=== PATIENT | male | born 1985 | race African-American/Black ===

== ENCOUNTER 2018-11-03 08:43 | Observation (INO) | payer OTHER ==
[~2018-11-03] VITALS: Ht 165.1 cm; Wt 77.6 kg
[2018-11-03] MEDS ORDERED: MULT1CHW28 PO (08:53)
[2018-11-03] MEDS ORDERED: ONDANSETRON 4MG/2ML VIAL (J2405) As Ordered ONE (09:14)
[2018-11-03] MEDS ORDERED: ONDANSETRON 4MG/2ML VIAL (J2405) IV ONE (09:15)
[2018-11-03 09:25] LABS: HEMOGLOBIN 14.8 g/dl (13.5-17.5); MEAN CORPUSCULAR HEMOGLOBIN 29.7 pg (27.0-33.0); MEAN CORPUSCULAR HGB CONC 32.9 g/dl (32.0-36.5); MEAN CORPUSCULAR VOLUME 90.2 fl (80.0-96.0); PLATELET COUNT, AUTOMATED 249 10^3/uL (150-450); RED BLOOD COUNT 4.99 10^6/uL (4.30-6.10); WHITE BLOOD COUNT 11.3 10^3/uL (4.0-10.0)
[2018-11-03] MEDS ORDERED: NS 1,000 ML IV ONE ×3 (09:30→11:15)
[2018-11-03 09:44] LABS: ATYPICAL LYMPH 1 % (0-5); LYMPHOCYTES 16 % (16-52); METAMYELOCYTES 1 % (0-0); NEUTROPHILS 78 % (35-75)
[2018-11-03 09:45] LABS: PLATELET ESTIMATE NORMAL (NORMAL)
[2018-11-03 09:54] LABS: ALBUMIN 3.9 GM/DL (3.2-5.2); ALT/SGPT 26 U/L (12-78); BILIRUBIN,TOTAL 0.2 MG/DL (0.2-1.0); BLOOD UREA NITROGEN 17 MG/DL (7-18); CALCIUM LEVEL 9.3 MG/DL (8.5-10.1); CARBON DIOXIDE LEVEL 17 MEQ/L (21-32); CHLORIDE LEVEL 104 MEQ/L (98-107); CREATININE FOR GFR 2.38 MG/DL (0.70-1.30); GLOMERULAR FILTRATION RATE 34.1 (>60); GLUCOSE, FASTING 161 MG/DL (70-100); POTASSIUM SERUM 4.2 MEQ/L (3.5-5.1); SODIUM LEVEL 143 MEQ/L (136-145); TOTAL PROTEIN 7.2 GM/DL (6.4-8.2)
[2018-11-03 10:56] LABS: AMPHETAMINES LEVEL URINE NEGATIVE (NEGATIVE); BARBITURATES URINE NEGATIVE (NEGATIVE); BENZODIAZEPINES URINE NEGATIVE (NEGATIVE); CANNABINOIDS URINE NEGATIVE (NEGATIVE); COCAINE METABOLITE URINE NEGATIVE (NEGATIVE); METHADONE URINE NEGATIVE (NEGATIVE); OPIATES URINE NEGATIVE (NEGATIVE); PHENCYCLIDINE URINE NEGATIVE (NEGATIVE)
[2018-11-03 11:45] LABS: VENOUS HCO3 24.7 MEQ/L (23.0-27.0); VENOUS O2 SATURATION 53.1 % (60.0-80.0); VENOUS PARTIAL PRESSURE CO2 60.4 mmHg (38.0-50.0); VENOUS PARTIAL PRESSURE O2 35.1 mmHg (30.0-50.0); VENOUS STANDARD HCO3 20.1 MEQ/L; VENOUS TOTAL CO2 26.6 MEQ/L (24.0-28.0)
[2018-11-03 11:45] LABS: CPK CREATINE PHOSPHOKINASE 320 U/L (39-308); SALICYLATE LEVEL < 1.7 MG/DL (5.0-30.0)
[2018-11-03 12:24] LABS: AMORPHOUS SEDIMENT SMALL (NEGATIVE); APPEARANCE, URINE HAZY (CLEAR); BACTERIA, URINE AUTO NEGATIVE (NEGATIVE); BILIRUBIN, URINE AUTO NEGATIVE (NEGATIVE); BLOOD, URINE BLOOD 1+ (NEGATIVE); COLOR, URINE YELLOW (YELLOW); GLUCOSE, URINE (UA) AUTO NEGATIVE (NEGATIVE); KETONE, URINE AUTO TRACE mg/dL (NEGATIVE); LEUKOCYTE ESTERASE, URINE AUTO NEGATIVE (NEGATIVE); MUCUS, URINE SMALL (NEGATIVE); NITRITE, URINE AUTO NEGATIVE (NEGATIVE); PROTEIN, URINE AUTO 2+ mg/dL (NEGATIVE); RBC, URINE AUTO 1 /HPF (0-3); SPECIFIC GRAVITY URINE AUTO 1.015 (1.002-1.035); SQUAMOUS EPITHELIAL CELL UR AU 0 /HPF (0-6); UROBILINOGEN, URINE AUTO 0.2 mg/dL (0.0-2.0); WBC, URINE AUTO 4 /HPF (0-3)
[2018-11-03] MEDS ORDERED: ESSETAB4 PO (12:43)
[2018-11-03] MEDS ORDERED: ACETAMINOPHEN TAB 650MG DOSE (2X325MG) PO PRN (13:30)
--- NOTE | 2018-11-03 13:45 | HPEPDOC ---
General Date of Admission Date of Service: Nov 03, 2018 Attending Physician: MANUELITO LOPEZ MD Chief Complaint The patient is a 33-year-old male admitted with a reason for visit of Near Syncope. History of Present Illness 33 years old -[place] male with past medical history of no medical disease. He jogs 3 to 4K every day, came in this morning when he felt lighthe aded and and was about to pass out and then later he tripped and fell right after his running. Denies any chest pain but did had 1 episode of shortness of breath, no nausea, vomiting, syncope or seizure like activity Home Medications Scheduled Multivitamin with Folic Acid (One Daily Multivitamin Tablet) 400 Mcg Tablet, 1 TAB PO DAILY, (Reported) Allergies Coded Allergies: No Known Allergies (Unverified , 11/03/18) Past Medical History Medical History None Surgical History None Social History * Smoker: Denies Alcohol: Denies Drugs: denies A-FIB/CHADSVASC A-FIB History Current/History of A-Fib/PAF?: No Review of Systems Constitutional: Denies: Chills, Fever, Malaise, Night Sweats, Weakness, Fatigue, Weight Loss, Lethargy, Other Eyes: Denies: Pain, Vision change, Conjunctivae inflammation, Eyelid inflammation, Redness, Other ENT: Denies: Head Aches, Ear Pain, Dysphagia, Sinus Congestion, Post Nasal Drip, Sore Throat, Epistaxis, Other Symptoms Skin: Denies: Rash, Lesions, Jaundice, Bruising, Itching, Dry, Breakdown, Nail Changes, Other Pulmonary: Denies: Dyspnea, Cough, Pleuritic Chest Pain, Other Symptoms Cardiovascular: Denies: Chest Pain, Palpitations, Orthopnea, Paroxysmal Noc. Dyspnea, Edema, Lt Headedness, Other Symptoms Gastrointestinal: Denies: Nausea, Vomiting, Abdominal Pain, Diarrhea, Constipation, Melena, Hematochezia, Other Symptoms Genitourinary: Denies: Dysuria, Frequency, Incontinence, Hematuria, Retention, Other Symptoms Hematologic: Denies: Bruising, Bleeding Excessively, Petecchia, Purpura, Enlarged Lymph Nodes, Other Hematologic Endocrine: Denies: Polydipsia, Polyphagia, Polyuria, Heat Intolerance, Cold Intolerance, Other Endocrine Sx Musculoskeletal: Denies: Neck Pain, Back Pain, Shoulder Pain, Arm Pain, Hand Pain, Leg Pain, Foot Pain, Joint Pain, Muscle Pain, Spasms, Other Symptoms Neurological: Denies: Weakness, Numbness, Incoordination, Change in speech, Confusion, Seizures, Other Symptoms Psych: Denies: Mood Normal, Anxiety, Depression, Memory Issues, Thoughts of Self Harm, Anger, Thoughts of Harming Other, Other Psych Physical Examination General Exam: Positive: Alert, Cooperative Eye Exam: Positive: PERRLA, Conjunctiva & lids normal ENT Exam: Positive: Atraumatic Neck Exam: Positive: Supple Chest Exam: Positive: Clear to auscultation, Normal air movement Heart Exam: Positive: Rate Normal, Normal S1, Normal S2 Abdomen Exam: Positive: Normal bowel sounds, Soft Extremity Exam: Positive: Normal pulses Skin Exam: Positive: Nl turgor and temperature Neuro Exam: Positive: Strength at 5/5 X4 ext Psych Exam: Positive: Mental status NL, Mood NL Vital Signs Vital Signs Date Time Temp Pulse Resp B/P (MAP) Pulse Ox O2 Delivery O2 Flow Rate FiO2 11/03/18 09:02 92 108/54 (72) 103 102/56 (71) 109 111/57 (75) 11/03/18 08:55 96.7 18 98 Room Air Laboratory Data Labs 24H Laboratory Tests 2 11/03/18 09:11: Immature Granulocyte % (Auto) , Nucleated Red Blood Cells % (auto) 0.0, Neutrop hils 78H, Band Neutrophils 4, Lymphocytes (Manual) 16, Metamyelocytes 1H, Atypical Lymphocytes 1, Platelet Estimate NORMAL, Urine Appearance HAZY, Urine Color YELLOW, Urine pH 6.0, Urine Specific [place] 1.015, Urine Protein 2+H, Urine Glucose (UA) NEGATIVE, Urine Ketones TRACEH, Urine Urobilinogen 0.2, Urine Bilirubin NEGATIVE, Urine Leukocyte Esterase NEGATIVE, Urine Blood 1+H, Urine Nitrite NEGATIVE, Urine WBC (Auto) 4H, Urine RBC (Auto) 1, Urine Hyaline Casts (Auto) 8, Urine Bacteria (Auto) NEGATIVE, Urine Squamous Epithelial Cells 0, Urine Amorphous Sediment SMALLH, Urine Mucus (Auto) SMALL, Urine Sperm (Auto) , Anion Gap 22H, Glomerular Filtration Rate 34.1L, Blood Urea Nitrogen 17, Cr eatinine 2.38H, Sodium Level 143, Potassium Level 4.2, Chloride Level 104, Carbon Dioxide Level 17L, Calcium Level 9.3, Aspartate Amino Transf (AST/SGOT) 21, Alanine Aminotransferase (ALT/SGPT) 26, Total Creatine Kinase 320H, Alkaline Phosphatase 84, Total Bilirubin 0.2, Total Protein 7.2, Albumin 3.9, Albumin/Globulin Ratio 1.18, Salicylates Level < 1.7L, Urine Amphetamines Screen NEGATIVE, Urine Benzodiazepines Screen NEGATIVE, Urine Opiates Screen NEGATIVE, Urine Methadone Screen NEGATIVE, Urine Barbiturates Screen NEGATIVE, Urine Phencyclidine Screen NEGATIVE, Urine Cocaine Metabolite Screen NEGATIVE, Urine Cannabinoids Screen NEGATIVE 11/03/18 11:20: Lactic Acid Level 8.2*H 11/03/18 11:22: Blood Gas Bicarbonate Standard 20.1, Venous Blood pH 7.230L, Venous Blood Partial Pressure CO2 60.4H, Venous Blood Partial Pressure O2 35.1, Venous Blood Total Carbon Dioxide 26.6, Venous Blood HCO3 24.7, Venous Blood Oxygen Saturation 53.1L, Venous Blood Base Excess -4.0L CBC/BMP Laboratory Tests 11/03/18 09:11 Red Blood Count 4.99, Mean Corpuscular Volume 90.2, Mean Corpuscular Hemoglobin 29.7, Mean Corpuscular Hemoglobin Concent 32.9, Red Cell Distribution Width 13.2, Calcium Level 9.3, Aspartate Amino Transf (AST/SGOT) 21, Alanine Aminotransferase (ALT/SGPT) 26, Total Creatine Kinase 320 H, Alkaline Phosphatase 84, Total Bilirubin 0.2, Total Protein 7.2, Albumin 3.9 Problems (1) Acute renal failure Status: Acute Problem Text: 33 years old -[place] male with no past medical history he runs about 3-4. [place] is a day when he developed dizziness and feeling of almost passing out and shortness of breath after running. On workup his creatinine as high as well. His BUN, most likely prerenal in nature Patient's lactic acid is also elevated, but that most likely secondary to his is running Again patient most likely has a dehydration and will be treated with IV hydration . I will request a renal sonogram to evaluate renal anatomy as well as echocardiogram for cardiac function . I'll request CBC, CMP and lactic acid at 6 PM and 6 AM again Will keep in close eye on intake and output Prophylaxis not needed as patient is active . We will repeat level work. If once it's and within normal range. An echo and renal sono's are negative, patient will be discharged home (2) Lactic acidosis Status: Acute Problem Text: Secondary to his strenuous exercise Will monitor lactic acid levels but is not associated with any infectious process or sepsis Plan / VTE VTE Prophylaxis Ordered?: No VTE Exclusion Mechanical Proph: Low Risk for VTE VTE Exclusion Pharmacological: At Low Risk for VTE MANUELITO LOPEZ MD Nov 03, 2018 13:45
[2018-11-03 15:22] VITALS: BP 133/64
[2018-11-03] MEDS: NS 1,000 ML IV SCH ×2 (15:36→21:42)
--- NOTE | 2018-11-03 16:49 | REP ---
Renal sonography: History: Acute renal failure. Findings: Cortical echogenicity pattern is increased bilaterally consistent with medical renal disease. There is no evidence of hydronephrosis or renal mass on either side. The right kidney measures 11.8 x 5.9 x 5.0 cm. Left renal dimensions are 10.3 x 4.9 x 6.0 cm. Other renal abnormality. Impression: Increased renal cortical echogenicity pattern consistent with medical renal disease. No hydronephrosis seen. Electronically Signed by Jeremiah Daily MD 11/03/2018 04:40 P
--- NOTE | 2018-11-03 17:56 | ECGEPIP ---
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
[2018-11-03 18:47] LABS: CALCIUM LEVEL 8.1 MG/DL (8.5-10.1); CREATININE FOR GFR 1.92 MG/DL (0.70-1.30); POTASSIUM SERUM 3.8 MEQ/L (3.5-5.1)
[2018-11-03 22:00] VITALS: BP 124/71
[2018-11-04] MEDS: NS 1,000 ML IV SCH ×2 (04:45→09:56)
[2018-11-04 06:00] VITALS: BP 122/70
--- NOTE | 2018-11-04 07:23 | ECHO ---
DATE OF PROCEDURE: 11/03/2018 HEIGHT: 65 inches. WEIGHT: 163 pounds. BODY SURFACE AREA: 1.81 sq m. Inpatient [facility] room 4228. REFERRING PHYSICIAN: Dr. Walter Baker INDICATIONS: Syncope. MEASUREMENTS: 2-D Measurements: RV - 4.0 cm LV - 4.3 cm Septum - 0.9 cm Posterior wall - 0.9 cm LVEF - 65% Doppler Measurements: AV - 1.24 meters per second LVOT - 0.90 meters per second LVOT - 1.9 cm MV - E 69, A - 78, E:A ratio 0.9 Early mitral deceleration time -169 milliseconds E prime 11, A prime 10, E/E prime ratio 6.2 PV - 0.8 meters per second Pulmonary artery acceleration time 113 milliseconds RVSP - 34 mmHg IVC - 1.9 cm COMMENTS: Normal sinus rhythm without intraventricular conduction disturbance. M-mode and two-dimensional echocardiography was performed with pulsed, continuous wave, color flow and tissue Doppler studies. Normal left ventricular size, wall thickness and wall motion. Normal left atrial size and current Doppler assessment of LV diastolic function and estimated mean left atrial pressure. Normal right heart chamber sizes and motion with Doppler evidence of borderline pulmonary hypertension. Normal IVC size and collapse against an elevated central venous pressure. Normal appearing and functioning valvular structures. No apparent intracardiac mass or pericardial effusion. Normal aortic root diameter. Unable to detect a structural or functional abnormality to account for the patient's syncopal spell.
[2018-11-04 07:59] LABS: ALBUMIN 3.2 GM/DL (3.2-5.2); ALT/SGPT 25 U/L (12-78); BILIRUBIN,TOTAL 0.4 MG/DL (0.2-1.0); BLOOD UREA NITROGEN 15 MG/DL (7-18); CALCIUM LEVEL 8.2 MG/DL (8.5-10.1); CARBON DIOXIDE LEVEL 26 MEQ/L (21-32); CHLORIDE LEVEL 115 MEQ/L (98-107); CREATININE FOR GFR 1.68 MG/DL (0.70-1.30); GLOMERULAR FILTRATION RATE > 60.0 (>60); GLUCOSE, FASTING 102 MG/DL (70-100); POTASSIUM SERUM 4.1 MEQ/L (3.5-5.1); SODIUM LEVEL 145 MEQ/L (136-145); TOTAL PROTEIN 6.1 GM/DL (6.4-8.2)
[2018-11-04 08:12] LABS: HEMATOCRIT 37.5 % (42.0-52.0); MEAN CORPUSCULAR HEMOGLOBIN 28.1 pg (27.0-33.0); MEAN CORPUSCULAR HGB CONC 32.8 g/dl (32.0-36.5); MEAN CORPUSCULAR VOLUME 85.8 fl (80.0-96.0); PLATELET COUNT, AUTOMATED 226 10^3/uL (150-450); RED BLOOD COUNT 4.37 10^6/uL (4.30-6.10); WHITE BLOOD COUNT 9.4 10^3/uL (4.0-10.0)
[2018-11-04 09:21] LABS: HEMOGLOBIN 12.3 g/dl (13.5-17.5)
--- NOTE | 2018-11-04 11:59 | DS.PDOC ---
Discharge Summary General Date of Admission Nov 03, 2018 at 08:44 Date of Discharge 11/04/18 Specialist/Consultants Involve: MANUELITO LOPEZ MD Discharge Summary PROCEDURES PERFORMED DURING STAY: None. ADMITTING DIAGNOSES: 1. Acute renal failure, lactic acidemia. DISCHARGE DIAGNOSES: 1. Acute renal failure, lactic acidemia. COMPLICATIONS/CHIEF COMPLAINT: Acute Renal Failure Lactic Acidosis. HISTORY OF PRESENT ILLNESS: 33 years old -[place] male with past medical history of no medical disease. He jogs 3 to 4K every day, came in this morning when he felt lightheaded and and was about to pass out and then later he tripped and fell right after his running. Denies any chest pain but did had 1 episode of shortness of breath, no nausea, vomiting, syncope or seizure like activity. HOSPITAL COURSE: Patient was admitted with the diagnosis of acute renal failure and high lactic acids secondary to physical exertion and possible dehydration. Patient was started on IV fluids with her hands. His lactic acid normalized and his creatinine progressively decreased to creatinine 1.68 this morning. A.m. labs. Should is completely asymptomatic. He can be discharged home with the recommendation for increased intake of oral liquids and was advised to avoid any strenuous exercises. His echocardiogram was also performed which shows a within normal limits. No hypertrophic cardiomyopathy or valvular dysfunction. DISCHARGE MEDICATIONS: Please see below. ALLERGIES: Please see below. PHYSICAL EXAMINATION ON DISCHARGE: VITAL SIGNS: Please see below. GENERAL: Within normal limits HEENT: PERRLA. Extraocular muscles intact NECK: Neck supple CARDIOVASCULAR EXAMINATION: S1, S2, regular RESPIRATORY EXAMINATION: Clear to A&P ABDOMINAL EXAMINATION: Benign EXTREMITIES: No clubbing, cyanosis, edema SKIN: Within normal limits NEUROLOGICAL EXAMINATION: No motor or sensory deficit PSYCHIATRIC EXAMINATION: Normal LABORATORY DATA: Please see below. IMAGING: Echocardiogram report:Normal sinus rhythm without intraventricular conduction disturbance. M-mode and two-dimensional echocardiography was performed with pulsed, continuous wave, color flow and tissue Doppler studies. Normal left ventricular size, wall thickness and wall motion. Normal left atrial size and current Doppler assessment of LV diastolic function and estimated mean left atrial pressure. Normal right heart chamber sizes and motion with Doppler evidence of borderline pulmonary hypertension. Normal IVC size and collapse against an elevated central venous pressure. Normal appearing and functioning valvular structures. No apparent intracardiac mass or pericardial effusion. Normal aortic root diameter. Unable to detect a structural or functional abnormality to account for the patient's syncopal spell. Renal sonogram report:Increased renal cortical echogenicity pattern consistent with medical renal disease. No hydronephrosis seen. PROGNOSIS: Good ACTIVITY: Decreased strenuous exercises routine. DIET: As tolerated DISCHARGE PLAN: Home DISPOSITION: . Home DISCHARGE INSTRUCTIONS: 1. As per discharge instructions. ITEMS TO FOLLOWUP ON ON OUTPATIENT: 1. [place] with PCP in one week. DISCHARGE CONDITION: Stable. TIME SPENT ON DISCHARGE: 35 minutes. Vital Signs/I&Os Vital Signs Date Time Temp Pulse Resp B/P (MAP) Pulse Ox O2 Delivery O2 Flow Rate FiO2 11/04/18 06:00 97.2 64 20 122/70 (87) 98 11/03/18 08:55 Room Air I&O- Last 24 Hours up to 6 AM 11/04/18 06:00 Intake Total 6600 ml Output Total 450 ml Balance 6150 ml Laboratory Data Labs 24H Laboratory Tests 2 11/03/18 15:27: Lactic Acid Followup at 4 Hours 3.6*H 11/03/18 18:03: Anion Gap 5L, Glomerular Filtration Rate 53.0L, Lactic Acid Level 1.2, Blood Urea Nitrogen 16, Creatinine 1.92H, Sodium Level 144, Potassium Level 3.8, Chloride Level 111H, Carbon Dioxide Level 28, Calcium Level 8.1L 11/04/18 05:59: Anion Gap 4L, Glomerular Filtration Rate > 60.0, Lactic Acid Level 0.8, Blood Urea Nitrogen 15, Creatinine 1.68H, Sodium Level 145, Potassium Level 4.1, Chloride Level 115H, Carbon Dioxide Level 26, Calcium Level 8.2L, Nucleated Red Blood Cells % (auto) 0.0, Aspartate Amino Transf (AST/SGOT) 27, Alanine Aminotransferase (ALT/SGPT) 25, Alkaline Phosphatase 60, Total Bilirubin 0.4#, Total Protein 6.1L, Albumin 3.2, Albumin/Globulin Ratio 1.10 CBC/BMP Laboratory Tests 11/03/18 18:03 Calcium Level 8.1 L 11/04/18 05:59 Calcium Level 8.2 L, Red Blood Count 4.37, Mean Corpuscular Volume 85.8, Mean Corpuscular Hemoglobin 28.1, Mean Corpuscular Hemoglobin Concent 32.8, Red Cell Distribution Width 13.4, Aspartate Amino Transf (AST/SGOT) 27, Alanine Aminotransferase (ALT/SGPT) 25, Alkaline Phosphatase 60, Total Bilirubin 0.4 #, Total Protein 6.1 L, Albumin 3.2 Discharge Medications Scheduled Multivitamin with Folic Acid (One Daily Multivitamin Tablet) 400 Mcg Tablet, 1 TAB PO DAILY, (Reported) Allergies Coded Allergies: No Known Allergies (Unverified , 11/03/18) MANUELITO LOPEZ MD Nov 04, 2018 11:59
== END 2018-11-04 15:53 | disposition home or self-care (01) ==
LOC: EDBD 08:43 → M ED 08:43 → M ED INP 08:44 → M MSPAV 15:18
PROVIDERS: ADMIT Internal Medicine; ATTEND Internal Medicine
DX: N17.9 Acute kidney failure, unspecified (principal); E87.2 Acidosis; E86.0 Dehydration
CPT/HCPCS: 36415; 76775; 80053; 80307; 81001; 82550; 82803; 83605; 85025; 85027; 93005; 93306; 96361; 96374; 99285; G0480; J2405

== ENCOUNTER 2020-10-08 15:17 | Emergency (ER) | payer OTHER ==
[~2020-10-08] VITALS: Ht 165.1 cm; Wt 78.2 kg
[~2020-10-08 15:17] MED LIST: ESSETAB4 PO; MULT1CHW28 PO
[2020-10-08] MEDS ORDERED: BACIOIN5 OD (15:25)
[2020-10-08] MEDS ORDERED: CEPH500C PO (17:58)
[2020-10-08] MEDS ORDERED: VIGA0.02 OD (17:58)
[2020-10-08 18:11] VITALS: BP 128/78
== END 2020-10-08 18:13 | disposition home or self-care (01) ==
LOC: M ED 15:17
DX: H00.011 Hordeolum externum right upper eyelid (principal)